=== PATIENT | female | born 1975 | race Caucasian/White ===

== ENCOUNTER 2021-12-29 23:46 | Emergency (ER) | payer OTHER ==
[~2021-12-29] VITALS: Ht 152.4 cm; Wt 45.4 kg
[2021-12-29 23:52] VITALS: BP 181/74
--- NOTE | 2021-12-29 23:53 | NUR ---
pt taken to bed 12
--- NOTE | 2021-12-29 23:53 | NUR ---
PT ROB ALS ER BED 12
[2021-12-30] MEDS ORDERED: HYDROcodone/APAP 5/325 MG 1 TAB TAB PO ONE ×2 (00:10→02:50)
--- NOTE | 2021-12-30 01:01 | NUR ---
pt to XR via claudia
--- NOTE | 2021-12-30 01:25 | NUR ---
PT BACK FROM XR
[2021-12-30] MEDS ORDERED: diphenhydrAMINE 50 MG CAP PO ONE (02:50)
[2021-12-30] MEDS ORDERED: HYDR-5080 PO (04:05)
--- NOTE | 2021-12-30 04:15 | NUR ---
IV removed, catheter intact and site benign. Applied folded 4x4 gauze and tape to stop bleeding.
[2021-12-30 04:19] VITALS: BP 152/71
--- NOTE | 2021-12-30 04:19 | NUR ---
Patient discharged. Written and verbal after care instructions given and explained. Patient alert, oriented and verbalized understanding of instructions. Ambulatory with steady gait. All questions addressed prior to discharge. ID band removed. Patient advised to follow up with PMD. Rx of Hydrocodon-acetaminophen 7.5-325 given. Patient educated on indication of medication including possible reaction and side effects. Opportunity to ask questions provided and answered.
== END 2021-12-30 04:19 | disposition home or self-care (01) ==
LOC: MED 23:46
DX: R56.9 Unspecified convulsions (principal); M54.50 Low back pain, unspecified; R07.81 Pleurodynia; Z79.899 Other long term (current) drug therapy
CPT/HCPCS: 71101; 72110; 99284; Q0163